=== PATIENT | male | born 1975 | race Caucasian/White ===

== ENCOUNTER 2020-05-07 10:34 | Outpatient (CLI) | payer OTHER ==
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
== END 2020-05-07 10:35 | disposition home or self-care (01) ==
LOC: SCSMRI 10:34
PROVIDERS: ATTEND Internal Medicine
DX: M25.561 Pain in right knee (principal); S83.241A Other tear of medial meniscus, current injury, right knee, initial encounter; S83.511A Sprain of anterior cruciate ligament of right knee, initial encounter; S72.451A Displaced supracondylar fracture without intracondylar extension of lower end of right femur, initial encounter for closed fracture

== ENCOUNTER 2020-05-25 07:30 | Outpatient (CLI) | payer OTHER ==
[2020-05-25 18:02] LABS: #Eosinphils 0.1 thou/uL (0.0-0.7); #Monocytes 0.6 thou/uL (0.11-0.59); %Basophils 0.8 % (0.0-1.0); %Eosinophils 2.1 % (0.0-10.0); %Lymphocytes 21.7 % (21.0-51.0); %Monocytes 11.7 % (0.0-10.0); %Neutrophils 63.7 % (42.0-75.0); Hemoglobin 14.4 g/dL (14.0-18.0); Mean Corpuscular HGB CONC 33.2 g/dL (32.0-36.0); Mean Corpuscular Hemoglobin 34.3 pg (27.0-31.0); Mean Platelet Volume 8.3 fL (7.4-10.4); Platelet Count 206 thou/uL (130-400); RBC Distribution Width 11.5 % (11.5-14.5); White Blood Cell (WBC) Count 4.7 thou/uL (4.8-10.8)
[2020-05-25 18:50] LABS: Anion Gap 16 mmol/L (10-20); BUN (Urea Nitrogen) 9 mg/dL (8.9-20.6); Calc. Creatinine Clearance 0 mL/min (70-130); Calcium 9.5 mg/dL (7.8-10.44); Carbon Dioxide 25 mmol/L (22-29); Chloride 100 mmol/L (98-107); Estimated GFR-MDRD 76; Glucose 95 mg/dL (70-105); Potassium 3.9 mmol/L (3.5-5.1); Sodium 137 mmol/L (136-145)
--- NOTE | 2020-05-26 07:14 | EKG ---
Test Reason : Blood Pressure : / mmHG Vent. Rate : 061 BPM Atrial Rate : 061 BPM P-R Int : 138 ms QRS Dur : 108 ms QT Int : 428 ms P-R-T Axes : 067 080 078 degrees QTc Int : 430 ms Normal sinus rhythm Incomplete right bundle branch block Borderline ECG When compared with ECG of 25-MAY-2020 14:50, (Unconfirmed) No significant change was found Confirmed by DR. Willie CAMERON ([id number]) on 05/26/2020 7:13:44 AM Referred By: IERO Confirmed By:DR. Willie CAMERON
[2020-05-26 11:55] LABS: SARS-CoV-2 MS2 Positive; SARS-CoV-2 N Gene Negative; SARS-CoV-2 S Gene Negative; SARS-CoV-2 by NAA Not Detected (NotDetected); SARS-CoV-2 orf1ab Negative
== END 2020-05-25 07:31 | disposition home or self-care (01) ==
LOC: LABBT 07:30
PROVIDERS: ATTEND Orthopaedic Surgery
DX: Z01.818 Encounter for other preprocedural examination (principal); S83.511A Sprain of anterior cruciate ligament of right knee, initial encounter; S83.206A Unspecified tear of unspecified meniscus, current injury, right knee, initial encounter; M25.861 Other specified joint disorders, right knee; Z20.828 Contact with and (suspected) exposure to other viral communicable diseases
CPT/HCPCS: 80048; 85025; 87635; 93005; 93010; U0003

== ENCOUNTER 2020-05-28 07:29 | Observation (INO) | payer OTHER ==
[2020-05-28] MEDS ORDERED: Fentanyl 100 MCG/2 ML VIAL ONE ×4 (08:16→14:01)
[2020-05-28] MEDS ORDERED: Midazolam HCl 2 mg/2 ml Vial ONE ×2 (08:16→10:08)
[2020-05-28] MEDS ORDERED: Ondansetron PF 4 MG/2 ML Vial IVP PRN (09:30)
[2020-05-28] MEDS ORDERED: HYDROcodone/Acetaminophen 5/325 mg Tablet PO PRN (09:30)
[2020-05-28] MEDS ORDERED: traMADol HCl 50 MG TAB PO PRN ×2 (09:30)
[2020-05-28] MEDS ORDERED: Promethazine HCl 25 MG/ML VIAL IM PRN (09:30)
[2020-05-28] MEDS ORDERED: Ropivacaine 0.2% 550 ML 550 ML NERVE BLCK SCH (09:30)
[2020-05-28] MEDS ORDERED: Zolpidem Tartrate 5 MG TAB PO PRN (09:30)
[2020-05-28] MEDS ORDERED: Vancomycin 1 GM/200 ML BAG ONE (10:22)
[2020-05-28] MEDS ORDERED: Lidocaine 1% PF 5 ML VIAL ONE (10:27)
[2020-05-28] MEDS ORDERED: PROPOFOL 200 MG/20 ML VIAL ONE (10:27)
[2020-05-28] MEDS ORDERED: EPHEDRINE 25 MG/5 ML SYRINGE ONE (10:27)
[2020-05-28] MEDS ORDERED: Ropivacaine 0.2% HCl/PF (40 MG/20 ML VIAL) ONE (10:27)
[2020-05-28] MEDS ORDERED: Bupivacaine PF 0.5% 30 ML VIAL ONE (10:27)
[2020-05-28] MEDS ORDERED: Milk Of Magnesia 30 ML UDCUP PO PRN (12:07)
[2020-05-28] MEDS ORDERED: Acetaminophen 500 MG TAB PO PRN (12:07)
[2020-05-28] MEDS ORDERED: HYDROcodone/Acetaminophen 7.5/325 mg Tablet PO PRN (12:07)
[2020-05-28] MEDS ORDERED: Morphine 4 MG/ML VIAL SLOW IVP PRN (12:07)
[2020-05-28] MEDS ORDERED: Bisacodyl 10 MG SUPP PR PRN (12:07)
[2020-05-28] MEDS ORDERED: Methocarbamol 500 MG TAB PO PRN (12:07)
[2020-05-28] MEDS ORDERED: diphenhydrAMINE 50 MG CAP PO PRN (12:07)
[2020-05-28] MEDS ORDERED: Morphine 2 MG/ML VIAL SLOW IVP PRN (12:07)
[2020-05-28 15:30] VITALS: BMI 23.1
[2020-05-28] MEDS: HYDROcodone/Acetaminophen 5/325 mg Tablet PO PRN (15:57)
[2020-05-28] MEDS ORDERED: Loratadine 10 MG TAB PO PRN (16:52)
[2020-05-28] MEDS ORDERED: CEFAZOLIN 2 GM in Premix Bag 1 BAG IVPB SCH ×2 (17:00→23:59)
[2020-05-28] MEDS: Dextrose 5 %-0.45 % NaCl 1,000 ML IV SCH ×2 (17:05→17:15)
[2020-05-28] MEDS: Ketorolac Tromethamine 30 MG/ML VIAL IVP SCH ×2 (17:08→23:04)
[2020-05-28] MEDS ORDERED: FLU VACC QS2020-21(6MOS UP)/PF 60 MCG/0.5 ML SYRINGE IM ONE (17:45)
[2020-05-28] MEDS: HYDROcodone/Acetaminophen 7.5/325 mg Tablet PO PRN (20:26)
[2020-05-28] MEDS: Famotidine 20 MG TAB PO SCH (20:27)
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
[2020-05-29] MEDS: Ketorolac Tromethamine 30 MG/ML VIAL IVP SCH (04:36)
[2020-05-29] MEDS: HYDROcodone/Acetaminophen 7.5/325 mg Tablet PO PRN (04:37)
[2020-05-29] MEDS: Famotidine 20 MG TAB PO SCH (08:19)
[2020-05-29] MEDS: Dextrose 5 %-0.45 % NaCl 1,000 ML IV SCH (08:20)
[2020-05-29] MEDS ORDERED: Fluticasone Propionate Nasal Spray 16 gm Bottle NASAL SCH (09:00)
[2020-05-29 11:41] VITALS: BP 128/78; TEMP 97.9
[2020-05-29] MEDS: HYDROcodone/Acetaminophen 5/325 mg Tablet PO PRN (11:46)
== END 2020-05-29 12:10 | disposition home or self-care (01) ==
LOC: SDC 07:29 → SURG A 14:53
PROVIDERS: ADMIT Orthopaedic Surgery; ATTEND Orthopaedic Surgery
PROC: 0SU Lower Joints, Supplement (ICD-10-PCS; principal; 2020-05-28)
PROC: 0MRN4KZ Replacement of Right Knee Bursa and Ligament with Nonautologous Tissue Substitute, Percutaneous Endoscopic Approach (ICD-10-PCS; 2020-05-28)
PROC: 0SBC4ZZ Excision of Right Knee Joint, Percutaneous Endoscopic Approach (ICD-10-PCS; 2020-05-28)
PROC: 3E0T3BZ Introduction of Anesthetic Agent into Peripheral Nerves and Plexi, Percutaneous Approach (ICD-10-PCS; 2020-05-28)
PROC: 3E0T3BZ Introduction of Anesthetic Agent into Peripheral Nerves and Plexi, Percutaneous Approach (ICD-10-PCS; 2020-05-28)
DX: S83.511A Sprain of anterior cruciate ligament of right knee, initial encounter (principal); S83.241A Other tear of medial meniscus, current injury, right knee, initial encounter; G89.18 Other acute postprocedural pain; K21.9 Gastro-esophageal reflux disease without esophagitis; F17.220 Nicotine dependence, chewing tobacco, uncomplicated; Z79.899 Other long term (current) drug therapy
CPT/HCPCS: 90471; 90662; 96365; 96366; 96375; 96376; A4306; C1713; G0008; G0378; J0690; J1885; J2250; J2704; J2795; J3010; J3370; S0020